=== PATIENT | female | born 1990 | race American Indian/Alaskan Native ===

== ENCOUNTER 2016-07-24 20:08 | Emergency (ER) | payer SELFPAY ==
[2016-07-24 23:35] LABS: Basophils % (Auto) 0.2 % (0.0-1.8); Eosinophils % (Auto) 0.3 % (0.0-4.3); Hematocrit 38.9 % (30.3-42.9); Hemoglobin 12.9 gm/dl (10.1-14.3); Mean Corpuscular HGB Conc 33 % (30-34); Mean Corpuscular Hemoglobin 27 pg (28-32); Mean Corpuscular Volume 80 fl (79-97); Platelet Count 155 K/mm3 (140-440); Red Blood Count 4.85 M/mm3 (3.65-5.03); Red Cell Distribution Width 13.9 % (13.2-15.2); White Blood Count 2.7 K/mm3 (4.5-11.0)
[2016-07-24 23:45] LABS: Alanine Aminotransferase 34 units/L (7-56); Albumin 3.6 g/dL (3.9-5); Albumin/Globulin Ratio 1.2 %; Alkaline Phosphatase 74 units/L (35-129); Anion Gap 17 mmol/L; Blood Urea Nitrogen 9 mg/dL (7-17); Calcium 8.2 mg/dL (8.4-10.2); Carbon Dioxide 25 mmol/L (22-30); Chloride 98.5 mmol/L (98-107); Glucose 93 mg/dL (65-100); Lipase 26 units/L (13-60); Sodium 137 mmol/L (137-145); Total Protein 6.6 g/dL (6.3-8.2)
[2016-07-25 01:58] LABS: Bilirubin,Urine NEG (Negative); Blood,Urine NEG (Negative); Ketones,Urine NEG (Negative); Leukocyte Esterase,Urine NEG (Negative); Mucus,Urine 1+ /HPF; Nitrite,Urine NEG (Negative)
--- NOTE | 2016-07-25 06:21 | Emergency Department Report ---
ED Abdominal Pain HPI - General Chief Complaint: Abdominal Pain Stated Complaint: N/V/D Time Seen by Provider: 07/25/16 06:18 Source: patient Mode of arrival: Ambulatory Limitations: No Limitations - History of Present Illness Initial Comments: Patient complains of green watery diarrhea nausea and occasional abdominal cramping for approximately 24 hours. Nausea is mildly persistent. Last diarrhea was at 4 AM. It was never bloody. No fever or chills. Patient states that her baby is starting to get it". She has not been on antibiotics nor had a recent hospitalization or any travel. MD Complaint: other (diarrhea) -: hour(s) Radiation: other (occasional crampy) Severity scale (0 -10): 4 Quality: cramping Consistency: now resolved Improves With: nothing Worsens With: nothing Context: sick contacts Associated Symptoms: denies other symptoms, nausea, vomiting, diarrhea - Related Data Previous Rx's Medication Instructions Recorded Last Taken Type Acetaminophen [Acetaminophen TAB] 325 mg PO Q6HR PRN #15 tablet 04/24/15 Unknown Rx Pnv with Ca,No.72/Iron/FA 1 each PO Q24HR #30 tablet 04/24/15 12/20/15 09:00 Rx [ Vitamin with Low Iron] Ondansetron [Zofran Odt] 4 mg PO Q6H PRN #7 tab.rapdis 07/25/16 Unknown Rx Allergies Allergy/AdvReac Type Severity Reaction Status Date / Time Penicillins Allergy Hives Verified 11/12/15 11:35 ED Review of Systems ROS: Stated complaint: N/V/D Other details as noted in HPI Constitutional: denies: chills, fever Eyes: denies: eye pain, eye discharge, vision change ENT: denies: ear pain, throat pain Respiratory: denies: cough, shortness of breath, wheezing Cardiovascular: denies: chest pain, palpitations Endocrine: no symptoms reported Gastrointestinal: as per HPI, abdominal pain, nausea, vomiting. denies: diarrhea Genitourinary: denies: urgency, dysuria, discharge Musculoskeletal: denies: back pain, joint swelling, arthralgia Skin: denies: rash, lesions Neurological: denies: headache, weakness, paresthesias Psychiatric: denies: anxiety, depression Hematological/Lymphatic: denies: easy bleeding, easy bruising ED Past Medical Hx - Past Medical History Hx Hypertension: No Hx Congestive Heart Failure: No Hx Diabetes: No Hx Deep Vein Thrombosis: No Hx Renal Disease: No Hx Sickle Cell Disease: No Hx Seizures: No Hx Asthma: No Hx COPD: No Hx HIV: No Additional medical history: Heart palpitation - Surgical History Additional Surgical History: 2009 - Social History Smoking Status: Never Smoker Substance Use Type: None - Medications Home Medications: Home Medications Medication Instructions Recorded Confirmed Last Taken Type Acetaminophen [Acetaminophen TAB] 325 mg PO Q6HR PRN #15 tablet 04/24/15 Unknown Rx Pnv with Ca,No.72/Iron/FA 1 each PO Q24HR #30 tablet 04/24/15 12/21/15 12/20/15 09:00 Rx [ Vitamin with Low Iron] Ondansetron [Zofran Odt] 4 mg PO Q6H PRN #7 tab.rapdis 07/25/16 Unknown Rx ED Physical Exam - General Limitations: No Limitations General appearance: alert, in no apparent distress - Head Head exam: Present: atraumatic, normocephalic - Eye Eye exam: Present: normal appearance - ENT ENT exam: Present: mucous membranes dry (mildly dry) - Neck Neck exam: Present: normal inspection - Respiratory Respiratory exam: Present: normal lung sounds bilaterally. Absent: respiratory distress - Cardiovascular Cardiovascular Exam: Present: regular rate, normal rhythm. Absent: systolic murmur, diastolic murmur, rubs, gallop - GI/Abdominal GI/Abdominal exam: Present: soft, normal bowel sounds. Absent: distended, tenderness, guarding, rebound, rigid - Extremities Exam Extremities exam: Present: normal inspection - Back Exam Back exam: Present: normal inspection - Neurological Exam Neurological exam: Present: alert, oriented X3, CN II-XII intact. Absent: motor sensory deficit - Psychiatric Psychiatric exam: Present: normal affect, normal mood - Skin Skin exam: Present: warm, dry, intact, normal color. Absent: rash ED Course Vital Signs 07/24/16 07/25/16 07/25/16 22:08 01:42 03:53 Temperature 98.8 F Pulse Rate 94 H 74 86 Respiratory 16 18 16 Rate Blood Pressure 133/74 Blood Pressure 99/48 108/62 [Left] O2 Sat by Pulse 100 96 99 Oximetry 07/25/16 06:38 Temperature Pulse Rate 90 Respiratory 18 Rate Blood Pressure Blood Pressure 95/52 [Left] O2 Sat by Pulse 97 Oximetry - Reevaluation(s) Reevaluation #1: IV fluids and Zofran and potassium. Patient appropriate for outpatient management. 07/25/16 08:07 ED Medical Decision Making - Lab Data Result diagrams: 07/24/16 22:36 07/24/16 22:36 Laboratory Results - last 24 hr 07/24/16 07/24/16 07/25/16 22:36 22:36 01:36 WBC 2.7 L RBC 4.85 Hgb 12.9 Hct 38.9 MCV 80 MCH 27 L MCHC 33 RDW 13.9 Plt Count 155 Lymph % (Auto) 19.9 Granite % (Auto) 11.1 H Eos % (Auto) 0.3 Baso % (Auto) 0.2 Lymph # 0.5 L Granite # 0.3 Eos # 0.0 Baso # 0.0 Seg Neutrophils % 68.5 Seg Neutrophils # 1.9 Sodium 137 Potassium 3.0 L Chloride 98.5 Carbon Dioxide 25 Anion Gap 17 BUN 9 Creatinine 0.6 L Estimated GFR > 60 BUN/Creatinine Ratio 15.00 Glucose 93 Calcium 8.2 L Total Bilirubin 0.80 AST 45 H ALT 34 Alkaline Phosphatase 74 Total Protein 6.6 Albumin 3.6 L Albumin/Globulin Ratio 1.2 Lipase 26 Urine Color Karrie Urine Turbidity Clear Urine pH 5.0 Ur Specific Spencer 1.024 Urine Protein 30 mg/dl Urine Glucose (UA) Neg Urine Ketones Neg Urine Blood Neg Urine Nitrite Neg Urine Bilirubin Neg Urine Urobilinogen 4.0 Ur Leukocyte Esterase Neg Urine WBC (Auto) 3.0 Urine RBC (Auto) 1.0 U Epithel Cells (Auto) 12.0 Urine Mucus 1+ Laboratory Results - last 24 hr 07/24/16 07/24/16 07/25/16 22:36 22:36 01:36 WBC 2.7 L RBC 4.85 Hgb 12.9 Hct 38.9 MCV 80 MCH 27 L MCHC 33 RDW 13.9 Plt Count 155 Lymph % (Auto) 19.9 Granite % (Auto) 11.1 H Eos % (Auto) 0.3 Baso % (Auto) 0.2 Lymph # 0.5 L Granite # 0.3 Eos # 0.0 Baso # 0.0 Seg Neutrophils % 68.5 Seg Neutrophils # 1.9 Sodium 137 Potassium 3.0 L Chloride 98.5 Carbon Dioxide 25 Anion Gap 17 BUN 9 Creatinine 0.6 L Estimated GFR > 60 BUN/Creatinine Ratio 15.00 Glucose 93 Calcium 8.2 L Total Bilirubin 0.80 AST 45 H ALT 34 Alkaline Phosphatase 74 Total Protein 6.6 Albumin 3.6 L Albumin/Globulin Ratio 1.2 Lipase 26 Urine Color Karrie Urine Turbidity Clear Urine pH 5.0 Ur Specific Spencer 1.024 Urine Protein 30 mg/dl Urine Glucose (UA) Neg Urine Ketones Neg Urine Blood Neg Urine Nitrite Neg Urine Bilirubin Neg Urine Urobilinogen 4.0 Ur Leukocyte Esterase Neg Urine WBC (Auto) 3.0 Urine RBC (Auto) 1.0 U Epithel Cells (Auto) 12.0 Urine Mucus 1+ Urine HCG, Qual 07/25/16 01:36 WBC RBC Hgb Hct MCV MCH MCHC RDW Plt Count Lymph % (Auto) Granite % (Auto) Eos % (Auto) Baso % (Auto) Lymph # Granite # Eos # Baso # Seg Neutrophils % Seg Neutrophils # Sodium Potassium Chloride Carbon Dioxide Anion Gap BUN Creatinine Estimated GFR BUN/Creatinine Ratio Glucose Calcium Total Bilirubin AST ALT Alkaline Phosphatase Total Protein Albumin Albumin/Globulin Ratio Lipase Urine Color Urine Turbidity Urine pH Ur Specific Spencer Urine Protein Urine Glucose (UA) Urine Ketones Urine Blood Urine Nitrite Urine Bilirubin Urine Urobilinogen Ur Leukocyte Esterase Urine WBC (Auto) Urine RBC (Auto) U Epithel Cells (Auto) Urine Mucus Urine HCG, Qual Negative Critical care attestation.: If time is entered above; I have spent that time in minutes in the direct care of this critically ill patient, excluding procedure time. ED Disposition Clinical Impression: Gastroenteritis, Dehydration, Hypokalemia Disposition: DISCHARGED TO HOME OR SELFCARE Is pt being admited?: No Does the pt Need Aspirin: No Condition: Stable Instructions: Abdominal Pain (ED), Acute Diarrhea (ED), Hypokalemia (ED) Additional Instructions: Increase fluids and advance diet as tolerated. Follow-up with the primary care provider. If he do not have one C referral. Rx if needed for nausea. Prescriptions: Ondansetron [Zofran Odt] 4 mg PO Q6H PRN #7 tab.rapdis PRN Reason: Nausea Referrals: PRIMARY CARE, [Primary Care Provider] - 3-5 Days [facility] [Provider Group] - 3-5 Days Time of Disposition: 08:09
[2016-07-25] MEDS: K-DUR PO ONE (06:38)
[2016-07-25] MEDS: NACL 0.9% 1000 ML 1,000 ML IV ONE (08:16)
[2016-07-25] MEDS: ZOFRAN IV ONE (08:17)
[2016-07-25 09:39] VITALS: BP 112/72
== END 2016-07-25 09:41 | disposition home or self-care (01) ==
LOC: ED 20:08
DX: K52.9 Noninfective gastroenteritis and colitis, unspecified (principal); E86.0 Dehydration; E87.6 Hypokalemia; Z88.0 Allergy status to penicillin
CPT/HCPCS: 36415; 80053; 81001; 81025; 83690; 85025; 96361; 96374; 99284; J2405; J7030